=== PATIENT | male | born 1980 | race Caucasian/White ===

== ENCOUNTER 2023-03-09 00:05 | Emergency (ER) | payer SELFPAY ==
[~2023-03-09] VITALS: Ht 180.3 cm; Wt 96.0 kg
[2023-03-09 00:15] VITALS: BP 142/96; PULSE 120; RESP 18; TEMP 98.7; O2SAT 95
== END 2023-03-09 00:55 | disposition left against medical advice (07) ==
LOC: ER 00:05
DX: F10.129 Alcohol abuse with intoxication, unspecified (principal); Y90.0 Blood alcohol level of less than 20 mg/100 ml
CPT/HCPCS: 99283